=== PATIENT | female | born 1955 | race African-American/Black ===

== ENCOUNTER 2016-12-06 00:35 | Emergency (ER) | payer MEDICAID ==
[~2016-12-06] VITALS: Ht 180.3 cm; Wt 72.6 kg
[2016-12-06 01:17] LABS: Basophils # (auto) 0.1 uL; Basophils % (auto) 1.3 % (0.0-2.0); Eosinophils # (auto) 0.1 uL; Hematocrit 45.2 % (36.0-46.0); Hemoglobin 14.8 g/dL (12.2-16.2); Lymphocytes # (auto) 2.7 uL; Lymphocytes % (auto) 33.6 % (10.0-50.0); Mean Corpuscular Hemoglobin 25.8 pg (28.0-32.0); Mean Corpuscular Hgb Conc. 32.7 g/dL (32.0-36.0); Mean Corpuscular Volume 79.1 fL (80.0-100.0); Mean Platelet Volume 9.3 fL (6.9-10.8); Monocytes # (auto) 0.5 uL; Monocytes % (auto) 6.7 % (0.0-12.0); Neutrophils # (auto) 4.5 uL; Neutrophils % (auto) 57.4 % (37.0-80.0); Nucleated Red Blood Cells % 0.3 %; Platelet Count (auto) 211 10^3/uL (140-450); Red Cell Distribution Width 15.5 % (11.8-14.3); White Blood Cell 7.9 10^3/uL (4.4-10.8)
[2016-12-06 01:33] LABS: INR 1.04 (0.9-1.15); Partial Thromboplastin Time 23.8 sec (22.64-33.71); Prothrombin Time 11.3 sec (9.37-12.3)
[2016-12-06 01:41] LABS: BUN/Creatinine Ratio 10.3; Bilirubin, Total 0.5 mg/dL (0.2-1.0); Calcium 9.3 mg/dL (8.5-10.1); Potassium 3.2 mmol/L (3.5-5.1)
[2016-12-06 01:42] LABS: Albumin 3.7 g/dL (3.4-5.0)
[2016-12-06 04:38] VITALS: BP 136/94
== END 2016-12-06 05:25 | disposition home or self-care (01) ==
LOC: ER 00:35
DX: R55 Syncope and collapse (principal); I10 Essential (primary) hypertension; R11.2 Nausea with vomiting, unspecified
CPT/HCPCS: 36415; 70450; 71010; 80053; 84484; 85025; 85610; 85730; 93005

== ENCOUNTER 2020-08-10 11:41 | Emergency (ER) | payer MEDICAID ==
[~2020-08-10] VITALS: Ht 165.1 cm; Wt 90.7 kg
[2020-08-10] MEDS ORDERED: SODIUM CHLORIDE 0.9% 500 ML IV ONE (12:00)
[2020-08-10 12:14] LABS: Basophils # (auto) 0.1 10 ^3/uL (0-0.2); Basophils % (auto) 1.6 % (0.0-2.0); Eosinophils # (auto) 0.1 10 ^3/uL (0-0.8); Eosinophils % (auto) 1.6 % (0.0-7.0); Hematocrit 41.4 % (36.0-46.0); Hemoglobin 13.6 g/dL (12.2-16.2); Lymphocytes # (auto) 1.7 10 ^3/uL (0.4-5.4); Lymphocytes % (auto) 34.1 % (10.0-50.0); Mean Corpuscular Hemoglobin 25.7 pg (28.0-32.0); Mean Corpuscular Hgb Conc. 32.9 g/dL (32.0-36.0); Monocytes # (auto) 0.4 10 ^3/uL (0-1.3); Monocytes % (auto) 8.5 % (0.0-12.0); Neutrophils # (auto) 2.6 10 ^3/uL (1.6-8.6); Neutrophils % (auto) 54.2 % (37.0-80.0); Nucleated Red Blood Cells % 0.2 %; Platelet Count (auto) 200 10^3/uL (140-450); Red Blood Cells 5.31 10^6/uL (4.0-5.20); Red Cell Distribution Width 15.8 % (11.8-14.3); White Blood Cell 4.8 10^3/uL (4.4-10.8)
[2020-08-10 12:27] LABS: Anion Gap 5 (5-15); Blood Urea Nitrogen 19 mg/dL (7-18); Calcium 8.3 mg/dL (8.5-10.1); Carbon Dioxide 24 mmol/L (21-32); Chloride 109 mmol/L (98-107); Glucose 110 mg/dL (74-106); Magnesium 2.2 mg/dL (1.6-2.6); Sodium 138 mmol/L (136-145)
[2020-08-10 12:34] LABS: Alanine Aminotransferase 21 U/L (13-56); Alkaline Phosphatase 61 U/L (45-117); Aspartate Aminotransferase 42 U/L (15-37); BUN/Creatinine Ratio 14.5; Bilirubin, Total 0.5 mg/dL (0.2-1.0); GFR African American 53 mL/min; GFR Non-African American 43 mL/min; Total Protein 7.7 g/dL (6.4-8.2)
[2020-08-10 14:37] LABS: Urine Bacteria NONE SEEN /hpf (None Seen); Urine Blood Negative /uL (Negative); Urine Hyaline Cast FEW /lpf (0 - 2); Urine Specific Gravity 1.011 (1.001-1.035); Urine WBC 1 /hpf (0 - 5)
[2020-08-10] MEDS ORDERED: cloNIDine HCL 0.1 MG TAB PO ONE (15:00)
[2020-08-10 16:28] VITALS: BP 172/101
== END 2020-08-10 16:54 | disposition home or self-care (01) ==
LOC: EDBD 11:41 → ER 11:41
DX: R55 Syncope and collapse (principal); I16.0 Hypertensive urgency; F12.10 Cannabis abuse, uncomplicated; F17.210 Nicotine dependence, cigarettes, uncomplicated; Z88.8 Allergy status to other drugs, medicaments and biological substances
CPT/HCPCS: 36415; 70450; 80053; 81001; 83735; 84484; 85025; 85049; 93005; 96360; 96361; 99285; J7040

== ENCOUNTER 2021-10-15 10:01 | Inpatient (IN) | payer OTHER, MEDICAID ==
[~2021-10-15] VITALS: Ht 175.3 cm; Wt 90.9 kg
[2021-10-15 11:04] LABS: Basophils # (auto) 0 10 ^3/uL (0-0.2); Eosinophils # (auto) 0 10 ^3/uL (0-0.8); Mean Corpuscular Hgb Conc. 31.7 g/dL (32.0-36.0); Monocytes # (auto) 0.5 10 ^3/uL (0-1.3); Red Cell Distribution Width 15.3 % (11.8-14.3)
[2021-10-15 11:06] LABS: Basophils % (auto) 1.1 % (0.0-2.0); Eosinophils % (auto) 0.2 % (0.0-7.0); Lymphocytes # (auto) 0.8 10 ^3/uL (0.4-5.4); Lymphocytes % (auto) 28.1 % (10.0-50.0); Mean Corpuscular Hemoglobin 25.1 pg (28.0-32.0); Mean Corpuscular Volume 79.3 fL (80.0-100.0); Monocytes % (auto) 17.4 % (0.0-12.0); Neutrophils # (auto) 1.6 10 ^3/uL (1.6-8.6); Neutrophils % (auto) 53.2 % (37.0-80.0); Nucleated Red Blood Cells % 0.1 %; Red Blood Cells 5.17 10^6/uL (4.0-5.20)
[2021-10-15 11:54] LABS: Albumin 3.1 g/dL (3.4-5.0); Calcium 8.6 mg/dL (8.5-10.1)
[2021-10-15 11:58] LABS: BUN/Creatinine Ratio 9.6; Bilirubin, Total 0.3 mg/dL (0.2-1.0); Total Protein 7.4 g/dL (6.4-8.2)
[2021-10-15 12:05] LABS: Potassium 2.6 mmol/L (3.5-5.1)
[2021-10-15] MEDS ORDERED: POTASSIUM CHL 20 Meq TABLET PO ONE (12:30)
[2021-10-15] MEDS: POTASSIUM CHL 20MEQ/100ML 100 ML IV SCH ×2 (12:40→16:04)
[2021-10-15] MEDS ORDERED: MORPHINE SULFATE INJ 2 MG/ml SYRG IV PRN (12:45)
[2021-10-15] MEDS: PIPERACILLIN-TAZOB 3.375GM 100 ML IV SCH ×2 (12:45→18:00)
[2021-10-15] MEDS ORDERED: SODIUM CHLORIDE 0.9% 1,000 ML IV ONE (12:45)
[2021-10-15] MEDS ORDERED: NITROGLYCERIN 0.4 MG SL TAB SL PRN (12:45)
[2021-10-15 18:00] VITALS: BP 146/104
[2021-10-15] MEDS ORDERED: PIPERACILLIN-TAZOB 3.375GM 100 ML IV SCH (18:00)
[2021-10-15 18:40] LABS: Calcium 8.6 mg/dL (8.5-10.1)
[2021-10-15 18:46] LABS: BUN/Creatinine Ratio 10.9
[2021-10-15] MEDS ORDERED: POTASSIUM EFFERVESENT TAB 25 MEQ PO ONE (19:00)
== END 2021-10-15 19:22 | disposition home or self-care (01) | DRG 312 ==
LOC: ER 10:11 → TELE 12:37
PROVIDERS: ADMIT Internal Medicine; ATTEND Internal Medicine
DX: R55 Syncope and collapse (principal); U07.1 COVID-19; E87.6 Hypokalemia; E66.9 Obesity, unspecified; F17.210 Nicotine dependence, cigarettes, uncomplicated; I10 Essential (primary) hypertension; E86.0 Dehydration; Z88.8 Allergy status to other drugs, medicaments and biological substances; Z68.29 Body mass index [BMI] 29.0-29.9, adult
CPT/HCPCS: 36415; 70450; 71045; 80048; 80053; 84484; 85025; 87040; 93005; 93306; 93886; 96360; 96361; G0378; J2543; J3480

== ENCOUNTER 2024-03-01 15:57 | Inpatient (IN) | payer BC, OTHER ==
[~2024-03-01] VITALS: Ht 175.3 cm; Wt 106.0 kg
--- NOTE | 2024-03-01 16:25 | ECG ---
[facility] Test Date: 2024-03-01 Test Time: 16:20:45 Pat Name: ADE RITTER Department: ER Room: [address] [place] [address] Gender: F Excellence Leader: GE : 1955 Requested By: JACQUELYN LERMA Order Number: [id number] Reading MD: Remberto Patel Measurements Intervals [place] Rate: 76 P: 49 ID: [id number] QRS: 6 QRSD: 95 T: 170 QT: 365 QTc: 411 Interpretive Statements Sinus rhythm Ventricular bigeminy Nonspecific T abnormalities, lateral leads Electronically Signed On 03-02-2024 16:08:49 PST by Remberto Patel Please click the below link to view image of tracing.
[2024-03-01 17:04] LABS: Hemoglobin 13.4 g/dL (12.2-16.2)
[2024-03-01 17:05] LABS: Basophils # (auto) 0 10 ^3/uL (0-0.2); Basophils % (auto) 0.7 % (0.0-2.0); Eosinophils # (auto) 0 10 ^3/uL (0-0.8); Eosinophils % (auto) 0.4 % (0.0-7.0); Hematocrit 41.6 % (36.0-46.0); Lymphocytes # (auto) 1.2 10 ^3/uL (0.4-5.4); Lymphocytes % (auto) 24.3 % (10.0-50.0); Mean Corpuscular Hemoglobin 25.6 pg (28.0-32.0); Mean Corpuscular Hgb Conc. 32.3 g/dL (32.0-36.0); Monocytes # (auto) 0.3 10 ^3/uL (0-1.3); Monocytes % (auto) 6.3 % (0.0-12.0); Neutrophils # (auto) 3.3 10 ^3/uL (1.6-8.6); Neutrophils % (auto) 68.3 % (37.0-80.0); Nucleated Red Blood Cells % 0.1 %; Platelet Count (auto) 255 10^3/uL (140-450); Red Blood Cells 5.26 10^6/uL (4.0-5.20); White Blood Cell 4.8 10^3/uL (4.4-10.8)
--- NOTE | 2024-03-01 17:17 | DVH ---
EXAM: CT HEAD WITHOUT CONTRAST HISTORY: confused COMPARISON: HEAD WITHOUT CONTRAST on DOS: 10/15/21, HEAD WITHOUT CONTRAST on DOS: 08/10/20 TECHNIQUE: Axial images were obtained and reformatted in coronal and sagittal planes. All CT scans at this medical facility are performed using dose modulation techniques as appropriate t o a performed exam including the following: Automated exposure control was utilized; adjustment of th e MA and/or KV according to patient size; and use of iterative reconstruction technique. CT Dose: CTDI volume is 64.26 mGy. Dose-length product is 1137.68 mGy*cm FINDINGS: Supratentorial Region: No evidence for large acute territorial ischemia. No intracranial hemorrhage is noted. Confluent white matter hypoattenuating foci are noted bilaterally, which typically reflect chronic microvascular ischemic changes. Chronic appearing lacunar infarcts are seen in the bilateral caudate heads, not present in CT scan of. Posterior Fossa: No acute abnormality. Brainstem: An old lacunar infarct is seen in right paramedian ofelia, stable. Sellar/Suprasellar Region: Unremarkable. Ventricles, Cisterns, Sulci: Age-appropriate. Orbits: Unremarkable. Paranasal Sinuses: Unremarkable. Mastoid Air Cells: Unremarkable. Vasculature: Intracranial arterial calcified plaque formation noted. Bones/Soft Tissues: No acute abnormality. Other: None. IMPRESSION: 1. No acute intracranial process. 2. Chronic microvascular ischemic changes old lacunar infarcts as described above.
[2024-03-01 17:36] LABS: Alanine Aminotransferase 28 U/L (7-40); Albumin 3.8 g/dL (3.2-4.8); Alkaline Phosphatase 74 U/L (46-116); Anion Gap 7 (5-15); Aspartate Aminotransferase 36 U/L (13-40); BUN/Creatinine Ratio 13.6 (10.0-20.0); Bilirubin, Total 0.5 mg/dL (0.2-1.0); Blood Urea Nitrogen 17 mg/dL (9-23); Calcium 10.1 mg/dL (8.7-10.4); Carbon Dioxide 26 mmol/L (20-31); Chloride 104 mmol/L (98-107); Sodium 137 mmol/L (136-145)
[2024-03-01 17:37] LABS: Total Protein 7.5 g/dL (5.7-8.2)
[2024-03-01 17:39] LABS: Glucose 132 mg/dL (74-106); Potassium 3.4 mmol/L (3.5-5.1)
--- NOTE | 2024-03-01 19:36 | ED.PDOC ---
History of Present Illness HPI Comments 68 y/o F presents with relative s/p syncopal episode, today. Patient endorses on eating her lunch when she had a sudden syncopal episode of 1x minute duration, while seated, this evening. She comments on having "tunnel vision" and lightheadedness prior to episode onset and not eating breakfast, earlier. At t irasema of assessment, she denies having any chest pain, shortness of breath, dizziness, lightheadedness, or other associated symptoms or modifiers at this time. 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 Family History Family History: Family hx of heart suzi Family History (Other): mother had a history of syncope Social History Smoker: Cigarettes Alcohol: Occasionally Drugs: Marijuana Lives In: Home Cardiovascular: reports: syncope All Other Systems: Reviewed and Negative (negative unless otherwise stated abo ve or in HPI) Physical Exam General Appearance: No Apparent Distress, Normal HEENT: Normal ENT Inspection, Pharynx Normal, TMs Normal Neck: Full Range of Motion, Non-Tender, Normal, Normal Inspection Respiratory: Chest Non-Tender, Lungs Clear, No Accessory Muscle Use, No Respiratory Distress, Normal Breath Sounds Cardiovascular: No Edema, No JVD, No Murmur, No Gallop, Normal Peripheral P ulses, Regular Rate/Rhythm Breast Exam: Deferred Gastrointestinal: No Organomegaly, Non Tender, No Pulsatile Mass, Normal Bowel Sounds, Soft Genitalia: Deferred Pelvic: Deferred Rectal: Deferred Extremities: No calf tenderness, Normal capillary refill, Normal inspection, Normal range of motion, Non-tender, No pedal edema Musculoskeletal : Apperance: Normal Neurologic: Alert, utility tech II-XII nml as Tested, No Motor Deficits, Normal Affect, Normal Mood, No Sensory Deficits Cerebellar Function: Normal Reflexes: Normal Skin: Dry, Normal Color, Warm Lymphatic: No Adenopathy Was a procedure done? Was a procedure done?: No EKG EKG : Pulse Rate (adult): 76 [place]: Normal Cardiac Rhythm: NSR Block: None Hypertrophy: None ST: Normal Differential Dx Considerations may include: dehydration, electrolyte imbalance, vasovagal response X-Ray, Labs, Meds, VS Vital Signs Date Time Temp Pulse Resp B/P (MAP) Pulse Ox O2 Delivery O2 Flow Rate FiO2 03/01/24 16:20 76 03/01/24 16:18 97.9 83 16 123/71 (88) 97 Lab Test 03/01/24 17:48 03/01/24 16:43 03/01/24 16:09 Range/Units Troponin I High Sensitivity 7 7 </=34 ng/L White Blood Count 4.8 4.4-10.8 10^3/uL Red Blood Count 5.26 H 4.0-5.20 10^6/uL Hemoglobin 13.4 12.2-16.2 g/dL Hematocrit 41.6 36.0-46.0 % Mean Corpuscular Volume 79.0 L 80.0-100.0 fL Mean Corpuscular Hemoglobin 25.6 L 28.0-32.0 pg Mean Corpuscular Hemoglobin Concent 32.3 32.0-36.0 g/dL Red Cell Distribution Width 15.0 H 11.8-14.3 % Platelet Count 255 140-450 10^3/uL Mean Platelet Volume 9.9 6.9-10.8 fL Neutrophils (%) (Auto) 68.3 37.0-80.0 % Lymphocytes (%) (Auto) 24.3 10.0-50.0 % Monocytes (%) (Auto) 6.3 0.0-12.0 % Eosinophils (%) (Auto) 0.4 0.0-7.0 % Basophils (%) (Auto) 0.7 0.0-2.0 % Neutrophils # (Auto) 3.3 1.6-8.6 10 ^3/uL Lymphocytes # (Auto) 1.2 0.4-5.4 10 ^3/uL Monocytes # (Auto) 0.3 0-1.3 10 ^3/uL Eosinophils # (Auto) 0 0-0.8 10 ^3/uL Basophils # (Auto) 0 0-0.2 10 ^3/uL Nucleated Red Blood Cells 0.1 % D-Dimer, Quantitative 0.86 H 0.0-0.49 mg/L FEU Sodium Level 137 136-145 mmol/L Potassium Level 3.4 L 3.5-5.1 mmol/L Chloride Level 104 98-107 mmol/L Carbon Dioxide Level 26 20-31 mmol/L Anion Gap 7 5-15 Blood Urea Nitrogen 17 9-23 mg/dL Creatinine 1.25 H 0.550-1.02 mg/dL Glomerular Filtration Rate Calc 47 >90 mL/min BUN/Creatinine Ratio 13.6 10.0-20.0 Serum Glucose 132 H 74-106 mg/dL Calcium Level 10.1 8.7-10.4 mg/dL Total Bilirubin 0.5 0.2-1.0 mg/dL Aspartate Amino Transferase (AST) 36 13-40 U/L Alanine Aminotransferase (ALT) 28 7-40 U/L Alkaline Phosphatase 74 46-116 U/L B-Type Natriuretic Peptide 107.52 0-100 pg/mL Total Protein 7.5 5.7-8.2 g/dL Albumin 3.8 3.2-4.8 g/dL Blood Oxycodone Screen Pending Blood Methadone Screen Pending Blood Amphetamines Screen Pending Drugs of Abuse Source Pending POC Glucose 75 70-106 mg/dl [place] [id number] Ph: [phone] DIAGNOSTIC IMAGING Diagnostic Imaging Report : [id number] Signed PATIENT: ADE RITTER ACCT: [id number] UNIT: [id number] : 1955 LOC: ER ROOM / BED: / AGE / SEX: 68 / F ADM STATUS: REG ER SERVICE 1625 ORDERING PHYSICIAN: JACQUELYN LERMA MD PROCEDURE(s): HWOCT - HEAD WITHOUT CONTRAST REASON: confused ORDER NUMBER(s): [id number], ACCESSION NUMBER(s): [id number] EXAM: CT HEAD WITHOUT CONTRAST HISTORY: confused COMPARISON: HEAD WITHOUT CONTRAST on DOS: 10/15/21, HEAD WITHOUT CONTRAST on DOS: 08/10/20 TECHNIQUE: Axial images were obtained and reformatted in coronal and sagittal planes. All CT scans at this medical facility are performed using dose modulation techniques as appropriate to a performed exam including the following: Automated exposure control was utilized; adjustment of the MA and/or KV according to patient size; and use of iterative reconstruction technique. CT Dose: CTDI volume is 64.26 mGy. Dose-length product is 1137.68 mGy*cm FINDINGS: Supratentorial Region: No evidence for large acute territorial ischemia. No intracranial hemorrhage is noted. Confluent white matter hypoattenuating foci are noted bilaterally, which typically reflect chronic microvascular ischemic changes. Chronic appearing lacunar infarcts are seen in the bilateral caudate heads, not present in CT scan of. Posterior Fossa: No acute abnormality. Brainstem: An old lacunar infarct is seen in right paramedian ofelia, stable. Sellar/Suprasellar Region: Unremarkable. Ventricles, Cisterns, Sulci: Age-appropriate. Orbits: Unremarkable. Paranasal Sinuses: Unremarkable. Mastoid Air Cells: Unremarkable. Vasculature: Intracranial arterial calcified plaque formation noted. Bones/Soft Tissues: No acute abnormality. Other: None. IMPRESSION: 1. No acute intracranial process. 2. Chronic microvascular ischemic changes old lacunar infarcts as described above. ATED BY: CHINA SANDY MD DICTATED DATE/TIME: 03/01/241714 SIGNED BY: CHINA SANDY MD SIGNED DATE/TIME: 03/01/241714 CC: Time of 1ST Reevaluation: 16:50 Reevaluation 1ST: Unchanged Patient Education/Counseling: Diagnosis, Treatment Family Education/Counseling: No Family Present Critical Care Note Critical Care Time?: No Stability Stability form required: No Heart Score Heart Score: Heart Score Response (Comments) Value History N/A 0 EKG N/A 0 Age N/A 0 Risk Factors N/A 0 Troponin N/A 0 Total 0 I personally scribed for JACQUELYN LERMA MD ([email or web address]) on 03/01/24 at 19:36. Electronically submitted by Travis Lindsay [email or web address]). JACQUELYN LERMA MD Mar 01, 2024 19:36
[2024-03-01] MEDS ORDERED: DOCUSATE SOD 100 MG CAP PO PRN (20:00)
[2024-03-01] MEDS ORDERED: ACETAMINOPHEN 325 MG TAB PO PRN (20:00)
[2024-03-01] MEDS ORDERED: ONDANSETRON HCL 4 MG/2 ML VIAL IV PRN (20:00)
[2024-03-01] MEDS ORDERED: HYDROcodone-ACET 5/325MG TAB PO PRN (20:00)
--- NOTE | 2024-03-01 20:13 | DVHHP2 ---
History of Present Illness Reason for Visit: Syncopal episode History of Present Illness The patient is a 68-year-old female with past medical history of hypertension, liver disease, vertigo, arthritis, and anxiety who presented to [facility] ED for evaluation of syncopal episode. Patient reports she was eating her lunch when she suddenly had syncopal episode lasting for 1 minute, experiencing tunnel vision, lightheadedness, getting worse that prompted this visit. Patient was seen and evaluated in the ED, laboratory data shows WBC 4.8, platelets 255, sodium 137, potassium 3.4, BUN 17, creatinine 1.25, GFR 47, glucose 132, troponin 7, BNP 107.52. Head CT showed no acute intracranial process. Please see medication orders section in the computer. On my assessment, patient denied chest pain, no headache, no dizziness, no diaphoresis, no shortness of breaths, no nausea, no vomiting, no fever, no chills. Patient was admitted for further evaluation and medical management. Past Medical History Anxiety, Arthritis, HTN, Liver, vertigo Past Surgical History BTL Family History Reviewed, noncontributory to the management of this case. Past Social History Patient lives at home, smokes cigarettes, drinks alcohol occasionally, uses marijuana. Review of Systems Constitutional: Yes: Weakness; No: Fever, Chills, Sweats, Malaise, Other Eyes: No: Pain, Vision change, Conjunctivae inflammation, Eyelid inflammation, Other, Redness ENT: No: Ear pain, Ear discharge, Nose pain, Nose discharge, Nose congestion, Mouth pain, Mouth swelling, Throat pain, Throat swelling, Other Respiratory: No: Cough, Dry, Shortness of breath, SOB with excertion, Wheezing, Hemoptysis, Pleuritic Pain, Sputum, Wheezing, Other Cardiovascular: Other (Syncope); No: Chest Pain, Palpitations, Orthopnea, Paroxysmal Noc. Dyspnea, Edema, Lt Headedness Gastrointestinal: No: Nausea, Vomiting, Abdominal Pain, Diarrhea, Constipation, Melena, Hematochezia, Other Genitourinary: No Dysuria, No Frequency, No Incontinence, No Hematuria, No Retention, No Other Musculoskeletal: No: other, neck pain, shoulder pain, arm pain, back pain, hand pain, leg pain, foot pain Skin: No: Rash, Lesions, Jaundice, Bruising, Other Neurological: No: Weakness, Numbness, Incoordination, Change in speech, Confusion, Seizures, Other Allergies: Coded Allergies: Bupropion (Verified Allergy, Unknown, 08/10/20) Medications Current Medications Medications Dose Ordered Sig/Rodney Route Start Time Stop Time Status Last Admin Dose Admin Hydralazine HCl 10 mg Q6HP PRN IV 03/01/24 20:00 Sodium Chloride 1,000 ml @ 60 mls/hr [id number] IV 03/01/24 20:00 Acetaminophen/ Hydrocodone Bitart 1 tab Q4HP PRN PO 03/01/24 20:00 Ondansetron HCl 4 mg Q4HP PRN IV 03/01/24 20:00 Docusate Sodium 100 mg BIDPRN PRN PO 03/01/24 20:00 Acetaminophen 650 mg Q6HP PRN PO 03/01/24 20:00 Exam Vital Signs Vital Signs Date Time Temp Pulse Resp B/P (MAP) Pulse Ox O2 Delivery O2 Flow Rate FiO2 03/01/24 19:36 76 03/01/24 16:18 97.9 16 123/71 (88) 97 General Appearance: Alert, Oriented X3, Cooperative, No acute distress HEENT: Atraumatic, PERRLA, EOMI, Mucous membr. moist/pink Respiratory: Clear to auscultation, Normal air movement Cardiovascular: Regular rate, Normal S1, Normal S2, No murmurs Abdominal: Normal bowel sounds, Soft, No tenderness, No hepatospenomegaly, No masses Extremities: No clubbing, No cyanosis, No edema, Normal pulses, No tenderness/swelling Skin: No rashes, No breakdown, No significant lesion Neuro: Normal speech, Normal tone, Sensation intact, Cranial nerves 3-12 NL, R eflexes 2+, Other (Generalized weakness) Psych/Mental Status: Mental status NL, Mood NL Labs/Xrays Labs Test 03/01/24 19:46 03/01/24 16:43 03/01/24 16:19 03/01/24 16:09 Range/Units White Blood Count 4.8 4.4-10.8 10^3/uL Red Blood Count 5.26 H 4.0-5.20 10^6/uL Hemoglobin 13.4 12.2-16.2 g/dL Hematocrit 41.6 36.0-46.0 % Mean Corpuscular Volume 79.0 L 80.0-100.0 fL Mean Corpuscular Hemoglobin 25.6 L 28.0-32.0 pg Mean Corpuscular Hemoglobin Concent 32.3 32.0-36.0 g/dL Red Cell Distribution Width 15.0 H 11.8-14.3 % Platelet Count 255 140-450 10^3/uL Mean Platelet Volume 9.9 6.9-10.8 fL Neutrophils (%) (Auto) 68.3 37.0-80.0 % Lymphocytes (%) (Auto) 24.3 10.0-50.0 % Monocytes (%) (Auto) 6.3 0.0-12.0 % Eosinophils (%) (Auto) 0.4 0.0-7.0 % Basophils (%) (Auto) 0.7 0.0-2.0 % Neutrophils # (Auto) 3.3 1.6-8.6 10 ^3/uL Lymphocytes # (Auto) 1.2 0.4-5.4 10 ^3/uL Monocytes # (Auto) 0.3 0-1.3 10 ^3/uL Eosinophils # (Auto) 0 0-0.8 10 ^3/uL Basophils # (Auto) 0 0-0.2 10 ^3/uL Nucleated Red Blood Cells 0.1 % D-Dimer, Quantitative 0.86 H 0.0-0.49 mg/L FEU Sodium Level 137 136-145 mmol/L Potassium Level 3.4 L 3.5-5.1 mmol/L Chloride Level 104 98-107 mmol/L Carbon Dioxide Level 26 20-31 mmol/L Anion Gap 7 5-15 Blood Urea Nitrogen 17 9-23 mg/dL Creatinine 1.25 H 0.550-1.02 mg/dL Glomerular Filtration Rate Calc 47 >90 mL/min BUN/Creatinine Ratio 13.6 10.0-20.0 Serum Glucose 132 H 74-106 mg/dL Calcium Level 10.1 8.7-10.4 mg/dL Total Bilirubin 0.5 0.2-1.0 mg/dL Aspartate Amino Transferase (AST) 36 13-40 U/L Alanine Aminotransferase (ALT) 28 7-40 U/L Alkaline Phosphatase 74 46-116 U/L B-Type Natriuretic Peptide 107.52 0-100 pg/mL Total Protein 7.5 5.7-8.2 g/dL Albumin 3.8 3.2-4.8 g/dL POC Glucose 75 70-106 mg/dl PATIENT: ADE RITTER ACCT: [id number] UNIT: [id number] : 1955 LOC: ER ROOM / BED: / AGE / SEX: 68 / F ADM STATUS: REG ER SERVICE 1625 ORDERING PHYSICIAN: JACQUELYN LERMA MD PROCEDURE(s): HWOCT - HEAD WITHOUT CONTRAST REASON: confused ORDER NUMBER(s): [id number], ACCESSION NUMBER(s): [id number] EXAM: CT HEAD WITHOUT CONTRAST HISTORY: confused COMPARISON: HEAD WITHOUT CONTRAST on DOS: 10/15/21, HEAD WITHOUT CONTRAST on DOS: 08/10/20 TECHNIQUE: Axial images were obtained and reformatted in coronal and sagittal planes. All CT scans at this medical facility are performed using dose modulation techniques as appropriate to a performed exam including the following: Automated exposure control was utilized; adjustment of the MA and/or KV according to patient size; and use of iterative reconstruction technique. CT Dose: CTDI volume is 64.26 mGy. Dose-length product is 1137.68 mGy*cm FINDINGS: Supratentorial Region: No evidence for large acute territorial ischemia. No intracranial hemorrhage is noted. Confluent white matter hypoattenuating foci are noted bilaterally, which typically reflect chronic microvascular ischemic changes. Chronic appearing lacunar infarcts are seen in the bilateral caudate heads, not present in CT scan of. Posterior Fossa: No acute abnormality. Brainstem: An old lacunar infarct is seen in right paramedian ofelia, stable. Sellar/Suprasellar Region: Unremarkable. Ventricles, Cisterns, Sulci: Age-appropriate. Orbits: Unremarkable. Paranasal Sinuses: Unremarkable. Mastoid Air Cells: Unremarkable. Vasculature: Intracranial arterial calcified plaque formation noted. Bones/Soft Tissues: No acute abnormality. Other: None. IMPRESSION: 1. No acute intracranial process. 2. Chronic microvascular ischemic changes old lacunar infarcts as described above. Assessment/Plan Assessment/Plan Syncopal episode Hypokalemia Hyperglycemia Generalized weakness Plan 1. Admit to telemetry unit 2. Breathing treatment 3. Pain control management 4. Management of fluids and electrolytes 5. Consultation for Cardiology 6. Diagnostic tests head CT 7. DVT prophylaxis-on aspirin 8. Repeat labs CBC, CMP in a.m. 9. Continue with current medical management 10. Treatment plan discussed with patient and RN. Patient verbalized understanding. Plan discussed with: Patient, Other (RN) My Orders Orders - GISELE LOUIS DNP Procedure Category Date Status Time Hydralazine Injection PHA 03/01/24 In Process (Apresoline Inject 20:00 Allergies DORIS 03/01/24 In Process 19:55 Code Status CODE 03/01/24 Transmitted 19:55 Sodium Chloride 0.9% PHA 03/01/24 In Process 20:00 Oxygen Per Hour RT 03/01/24 Transmitted 19:55 Hydrocodone-Acet PHA 03/01/24 In Process 5/325mg Tab ([place] 20:00 Ondansetron Hcl PHA 03/01/24 In Process (Zofran) 20:00 Docusate Sodium PHA 03/01/24 In Process Capsule (Colace 20:00 Fall Risk Precautions DORIS 03/01/[address] 19:55 Complete Blood Count LAB 03/02/24 Verified 04:00 Comprehensive LAB 03/02/24 Verified Metabolic Panel 04:00 Cardiac DIET 03/02/24 Transmitted Diet-2gna,Lofat,Lochol Breakfast Condition: Serious DORIS 03/01/24 In Process 19:55 Acetaminophen Tablet PHA 03/01/24 In Process (Tylenol Tablet) 20:00 Sequential DORIS 03/01/24 In Process Compression Device * Cardiology Consult CONS 03/01/24 Verified 20:11 Admit ADMIT 03/01/24 Verified 20:11 Nitroglycerin PHA 03/01/24 Verified Sublingual (Ntrostat 20:15 Morphine Sulfate PHA 03/01/24 Verified Injection 20:15 Stat Ekg For Chest DORIS 03/01/24 Verified Pain 20:11 Notify Md Of Changes DORIS 03/01/24 Verified From Base 20:11 Assistant Loan Processor For DORIS 03/01/24 Verified 24 Hours 20:11 Emergency Dysrhythmia DORIS 03/01/24 Verified Protocol 20:11 Rhythm Strips Once DORIS 03/01/24 Verified Every Shift 20:11 Oxygen By Nasal RT 03/01/24 Verified Cannula 20:11 Problem List: (1) Syncopal episodes (2) Hypokalemia (3) Hyperglycemia (4) Generalized weakness Date of Service: Mar 01, 2024 Billing Provider: GISELE LOUIS DNP Common Visit Codes: [id number] INP/OBS CARE (HIGH) GISELE LOUIS DNP Mar 01, 2024 20:13
[2024-03-01] MEDS ORDERED: MORPHINE SULFATE INJ 2 MG/ml SYRG IV PRN (20:15)
[2024-03-01] MEDS ORDERED: NITROGLYCERIN 0.4 MG SL TAB SL PRN (20:15)
[2024-03-01 20:25] LABS: Urine Bacteria MANY /hpf (None Seen); Urine Blood Negative /uL (Negative); Urine Clarity Turbid (Clear); Urine Color Yellow (Yellow); Urine Hyaline Cast FEW /lpf (0 - 2); Urine Mucus FEW (None Seen); Urine Protein, UAD Negative (Negative); Urine Specific Gravity 1.017 (1.001-1.035); Urine Squamous Epithelial Cell FEW /hpf (<5); Urine Urobilinogen Normal (Negative); Urine WBC 25 /hpf (0 - 5); Urine pH 5.5 (5.0-9.0)
[2024-03-01 20:33] LABS: Amphetamine Screen, Urine Neg (NEGATIVE); Cannabinoid Screen, Urine Pos (NEGATIVE)
[2024-03-01 20:37] LABS: Barbiturate Scree,Urine Neg (NEGATIVE); Benzodiazephine Screen, Urine Neg (NEGATIVE); Cocaine Screen, Urine Neg (NEGATIVE); Opiate Scree,Urine Neg (NEGATIVE); Phencyclidine Screen, Urine Neg (NEGATIVE)
[2024-03-01] MEDS: POTASSIUM CHL 20 Meq TABLET PO ONE (20:54)
[2024-03-01 21:05] VITALS: PULSE 64; RESP 18; O2SAT 100
[2024-03-01 22:30] VITALS: PULSE 72; RESP 17; O2SAT 96
[2024-03-01] MEDS: SODIUM CHLORIDE 0.9% 1,000 ML IV SCH (22:50)
[2024-03-01] MEDS: hydrALAZINE HCL 20 MG/ML VL IV PRN (22:50)
[2024-03-02 06:37] LABS: Basophils # (auto) 0 10 ^3/uL (0-0.2); Basophils % (auto) 0.5 % (0.0-2.0); Eosinophils # (auto) 0 10 ^3/uL (0-0.8); Eosinophils % (auto) 1.1 % (0.0-7.0); Monocytes # (auto) 0.5 10 ^3/uL (0-1.3); Neutrophils # (auto) 2.2 10 ^3/uL (1.6-8.6); Nucleated Red Blood Cells % 0.2 %; White Blood Cell 4.4 10^3/uL (4.4-10.8)
[2024-03-02 06:40] LABS: Hematocrit 39.5 % (36.0-46.0); Hemoglobin 12.6 g/dL (12.2-16.2); Lymphocytes # (auto) 1.6 10 ^3/uL (0.4-5.4); Mean Corpuscular Hgb Conc. 31.9 g/dL (32.0-36.0); Mean Corpuscular Volume 78.3 fL (80.0-100.0); Neutrophils % (auto) 50.4 % (37.0-80.0); Platelet Count (auto) 229 10^3/uL (140-450); Red Blood Cells 5.05 10^6/uL (4.0-5.20); Red Cell Distribution Width 14.9 % (11.8-14.3)
[2024-03-02 06:41] LABS: Alanine Aminotransferase 23 U/L (7-40); Albumin 3.5 g/dL (3.2-4.8); Alkaline Phosphatase 75 U/L (46-116); Anion Gap 7 (5-15); Aspartate Aminotransferase 30 U/L (13-40); BUN/Creatinine Ratio 14.4 (10.0-20.0); Blood Urea Nitrogen 15 mg/dL (9-23); Calcium 9.5 mg/dL (8.7-10.4); Carbon Dioxide 25 mmol/L (20-31); Glucose 104 mg/dL (74-106); Potassium 3.5 mmol/L (3.5-5.1); Sodium 142 mmol/L (136-145)
[2024-03-02 06:51] LABS: Bilirubin, Total 0.2 mg/dL (0.2-1.0); Chloride 110 mmol/L (98-107)
[2024-03-02] MEDS: ASPirin 81 mg TAB PO SCH (09:58)
--- NOTE | 2024-03-02 10:02 | DVHINCON2 ---
Date Seen: Mar 02, 2024 Referring Physician NIRAV Delgado Reason for Consultation Syncope History of Present Illness This is a pleasant 68-year-old female who presented to the emergency room with a chief complaint of syncopal event. The patient reports she was eating lunch when she failed a sudden onset of generalized weakness, dizziness, and felt the room spinning around resembling previous vertigo episodes in the past. The event was witnessed by her son for described her as having a glazed look in her eyes. Denies chest pain, palpitations, diaphoresis, or shortness of breath. She underwent a 12 lead electrocardiogram revealing a sinus rhythm with nonspecific ST depression to lateral wall and associated intermittent ventricular bigeminy. Serial troponin levels are negative. Significant medical history includes hypertension, history of cerebrovascular accident on 01/2022, vertigo, cannabinoid use, and tobacco use. Past Medical History Past medical history reviewed. No other significant than mentioned above. Past Surgical History BTL Family History Family history reviewed. Reports mother from massive myocardial infarction at 73 years old. Social History Denies any use of alcohol. Admits to cannabinoid use a weekly basis. Smokes a pack of cigarettes every two days. Allergies: Coded Allergies: Bupropion (Verified Allergy, Unknown, 08/10/20) Home Meds Home medications reviewed. Current Medications Current Medications Medications (Trade) Dose Ordered Sig/Rodney Route PRN Reason Start Time Stop Time Status Last Admin Hydralazine HCl (Apresoline Injection) 10 mg Q6HP PRN IV SBP>150 03/01/24 20:00 03/02/24 06:34 Sodium Chloride 1,000 ml @ 60 mls/hr [id number] IV 03/01/24 20:00 03/01/24 22:50 Acetaminophen/ Hydrocodone Bitart ([place] 5/325MG Tab) 1 tab Q4HP PRN PO MODERATE PAIN (4-6 PAIN SCALE) 03/01/24 20:00 Ondansetron HCl (Zofran) 4 mg Q4HP PRN IV NAUSEA / VOMITING 03/01/24 20:00 Docusate Sodium (Colace Capsule) 100 mg BIDPRN PRN PO FOR CONSTIPATION 03/01/24 20:00 Acetaminophen (Tylenol Tablet) 650 mg Q6HP PRN PO PAIN SCALE 1-3 OR TEMP>100.4 03/01/24 20:00 Nitroglycerin (Ntrostat Sublingual) 0.4 mg Q5MINP PRN SL FOR CHEST PAIN 03/01/24 20:15 Morphine Sulfate 2 mg Q30M PRN IV FOR CHEST PAIN 03/01/24 20:15 Aspirin 81 mg DAILY PO 03/02/24 10:00 Ceftriaxone Sodium 50 ml @ 100 mls/hr DAILY@09 IV 03/03/24 09:00 UNV Review of Systems Constitutional: No symptom reported Ears, Nose, & Throat: No symptom reported Eyes: No symptom reported Neurological: Syncope Pulmonary/Respiratory: No symptom reported Cardiovascular: No symptom reported Gastrointestinal: No symptom reported Genitourinary: No symptom reported Musculoskeletal: No symptom reported Skin: No symptom reported Psychiatric: No symptom reported Endocrine: No symptom reported Hemotologic/Lymphatic: No symptom reported Vital Signs Vital Signs Date Time Temp Pulse Resp B/P (MAP) Pulse Ox O2 Delivery O2 Flow Rate FiO2 03/02/24 08:15 Room Air* 0 21 03/02/24 08:01 89 03/02/24 07:08 121/60 (80) 03/02/24 06:30 98.0 14 98 98.0 Physical Exam General Appearance: Cooperative. Well developed. Obese. In no acute distress Head Exam: Normal inspection Neck Exam: Normal inspection. Non-tender. Normal alignment Pulmonary/Respiratory: Chest non-tender. Clear bilateral breath sounds Cardiovascular/Chest: Regular rate and rhythm. S1, S2. No murmurs. No JVD. Peripheral Pulses: 2+ Radial (R). 2+ Radial (L). 2+ Pedal (R). 2+ Pedal (L) Abdominal Exam: Normal bowel sounds. Soft. Nontender. No hepatospenomegaly. No masses Ankle Exam: Negative ankle edema Lower extremities: Negative lower extremity edema Neuro/Mental Status: A&O x4. Coherent Thoughts/Psych: Normal thought pattern. Appropriate mood and affect. Good judgement and insight Appearance: In no acute distress Skin Exam: Normal inspection. Normal color. Warm. Dry Labs/Diagnostic Data Labs Test 03/02/24 05:54 03/01/24 19:46 03/01/24 16:43 03/01/24 16:19 Range/Units White Blood Count 4.4 4.4-10.8 10^3/uL Red Blood Count 5.05 4.0-5.20 10^6/uL Hemoglobin 12.6 12.2-16.2 g/dL Hematocrit 39.5 36.0-46.0 % Mean Corpuscular Volume 78.3 L 80.0-100.0 fL Mean Corpuscular Hemoglobin 25.0 L 28.0-32.0 pg Mean Corpuscular Hemoglobin Concent 31.9 L 32.0-36.0 g/dL Red Cell Distribution Width 14.9 H 11.8-14.3 % Platelet Count 229 140-450 10^3/uL Mean Platelet Volume 9.9 6.9-10.8 fL Neutrophils (%) (Auto) 50.4 37.0-80.0 % Lymphocytes (%) (Auto) 37.0 10.0-50.0 % Monocytes (%) (Auto) 11.0 0.0-12.0 % Eosinophils (%) (Auto) 1.1 0.0-7.0 % Basophils (%) (Auto) 0.5 0.0-2.0 % Neutrophils # (Auto) 2.2 1.6-8.6 10 ^3/uL Lymphocytes # (Auto) 1.6 0.4-5.4 10 ^3/uL Monocytes # (Auto) 0.5 0-1.3 10 ^3/uL Eosinophils # (Auto) 0 0-0.8 10 ^3/uL Basophils # (Auto) 0 0-0.2 10 ^3/uL Nucleated Red Blood Cells 0.2 % Sodium Level 142 # 136-145 mmol/L Potassium Level 3.5 3.5-5.1 mmol/L Chloride Level 110 H 98-107 mmol/L Carbon Dioxide Level 25 20-31 mmol/L Anion Gap 7 5-15 Blood Urea Nitrogen 15 9-23 mg/dL Creatinine 1.04 H 0.550-1.02 mg/dL Glomerular Filtration Rate Calc 59 >90 mL/min BUN/Creatinine Ratio 14.4 10.0-20.0 Serum Glucose 104 74-106 mg/dL Calcium Level 9.5 8.7-10.4 mg/dL Total Bilirubin 0.2 0.2-1.0 mg/dL Aspartate Amino Transferase (AST) 30 13-40 U/L Alanine Aminotransferase (ALT) 23 7-40 U/L Alkaline Phosphatase 75 46-116 U/L Total Protein 7.0 5.7-8.2 g/dL Albumin 3.5 3.2-4.8 g/dL Troponin I High Sensitivity 6 </=34 ng/L D-Dimer, Quantitative 0.86 H 0.0-0.49 mg/L FEU B-Type Natriuretic Peptide 107.52 0-100 pg/mL Urine Color Yellow Yellow Urine Clarity Turbid H Clear Urine pH 5.5 5.0-9.0 Urine Specific Decker 1.017 1.001-1.035 Urine Protein Negative Negative Urine Ketones Negative Negative Urine Blood Negative Negative /uL Urine Nitrite 2+ H Negative Urine Bilirubin Negative Negative Urine Urobilinogen Normal Negative mg/dL Urine Leukocyte Esterase 1+ Negative /uL Urine RBC 1 0 - 4 /hpf Urine WBC 25 0 - 5 /hpf Urine Squamous Epithelial Cells Few <5 /hpf Urine Bacteria Many H None Seen /hpf Urine Hyaline Casts Few 0 - 2 /lpf Urine Mucus Few None Seen Urine Glucose Normal Normal mg/dL Urine Opiates Screen Neg NEGATIVE Urine Fentanyl Screen Neg NEGATIVE Urine Barbiturates Screen Neg NEGATIVE Urine Phencyclidine Screen Neg NEGATIVE Urine Amphetamines Screen Neg NEGATIVE Urine Benzodiazepines Screen Neg NEGATIVE Urine Cocaine Screen Neg NEGATIVE Urine Cannabinoids Screen Pos NEGATIVE Test 03/01/24 16:09 Range/Units POC Glucose 75 70-106 mg/dl Assessment Syncope and collapse Rule out structural heart disease Rule out carotid artery stenosis Rule out tachy/bradyarrhythmias Hypertension HX of CVA HX of vertigo Cannabinoid use Tobacco dependence Obesity Plan/Recommendation (Dr. Quinteros) The patient with complaints of syncope states it resembles to those from previous vertigo events. We will continue further cardiac evaluation with a transthoracic echocardiogram and a carotid duplex to rule out stenosis. Consider an outpatient event monitor if deemed necessary. Monitor ECG changes closely and notify. Continue blood pressure control. Consider neurological evaluation. In the setting of unremarkable imaging results, there is no further cardiac workup indicated at this time. Thank you for allowing us to participate in this patient's care. Please call if you have any questions or concerns. This medical document was created using an electronic medical record system with voice recognition software and computerized dictation system. Although this document has been carefully reviewed, there might still be some phonetic and typographical errors. Occasional wrong-word or ``sound-alike substitutions may have occurred due to the inherent limitations of voice recognition software. These areas are purely typographical due to imperfections of the software programs and do not reflect any compromise in the patient's medical care. Please read the chart carefully and recognize, using context, where these substitutions have occurred. Plan discussed with: Patient, Other NYHA Physical activity limitations: NA Date of Service: Mar 02, 2024 Billing Provider: JOCELIN CALDWELL Cardiology Common Codes: [id number] INP/OBS CARE (High) JOCELIN CALDWELL Mar 02, 2024 10:02
[2024-03-02] MEDS: cefTRIAXone 1GM/50ML D5W 50 ML IV ONE (10:18)
--- NOTE | 2024-03-02 10:44 | DVHPNRES ---
Progress Note Date Seen: Mar 02, 2024 Resident Creating Document: ABDULKADIR WONG RESIDENT Medical Necessity Reason Pt with a Central, PICC or Fol: No Subjective Review of Systems The patient is a 68-year-old female with past medical history of hypertension, liver disease, vertigo, arthritis, and anxiety who presented to [facility] ED for evaluation of syncopal episode. Patient reports she was eating her lunch when she suddenly had syncopal episode lasting for 1 minute, experiencing tunnel vision, lightheadedness, getting worse that prompted this visit. Patient was seen and examined on the bedside. She is alert oriented x3. No active complaints Constitutional: No: Fever, Chills, Sweats, Weakness, Malaise, Other Eyes: No: Pain, Vision change, Conjunctivae inflammation, Eyelid inflammation, Other, Redness ENT: No: Ear pain, Ear discharge, Nose pain, Nose discharge, Nose congestion, Mouth pain, Mouth swelling, Throat pain, Throat swelling, Other Respiratory: No shortness of breath, Cough, Dry,Wheezing, Hemoptysis, Pleuritic Pain, Sputum, Wheezing, Other Cardiovascular: No: Chest Pain, Palpitations, Orthopnea, Paroxysmal Noc. Dyspnea, Edema, Lt Headedness, Other Gastrointestinal: No: Nausea, Vomiting, Abdominal Pain, Diarrhea, Constipation, Melena, Hematochezia, Other Musculoskeletal: No: other, neck pain, shoulder pain, arm pain, back pain, hand pain, leg pain, foot pain Neurological:; No: Weakness, Numbness, Incoordination, Change in speech, Confusion, Seizures Objective vital signs Vital Sign Date Time Temp Pulse Resp B/P (MAP) Pulse Ox O2 Delivery O2 Flow Rate FiO2 03/02/24 10:38 115 18 142/79 (100) 98 03/02/24 08:15 Room Air* 0 21 03/02/24 06:30 98.0 98.0 Total Intake and Output 03/01/24 03/01/24 03/02/24 15:00 23:00 07:00 Intake Total 10 ml 120 ml Balance 10 ml 120 ml medications Current Medications Medications Dose Ordered Sig/Rodney Route Start Time Stop Time Status Last Admin Dose Admin Hydralazine HCl 10 mg Q6HP PRN IV 03/01/24 20:00 03/02/24 06:34 10 MG Sodium Chloride 1,000 ml @ 60 mls/hr [id number] IV 03/01/24 20:00 03/01/24 22:50 60 MLS/HR Acetaminophen/ Hydrocodone Bitart 1 tab Q4HP PRN PO 03/01/24 20:00 Ondansetron HCl 4 mg Q4HP PRN IV 03/01/24 20:00 Docusate Sodium 100 mg BIDPRN PRN PO 03/01/24 20:00 Acetaminophen 650 mg Q6HP PRN PO 03/01/24 20:00 Nitroglycerin 0.4 mg Q5MINP PRN SL 03/01/24 20:15 Morphine Sulfate 2 mg Q30M PRN IV 03/01/24 20:15 Aspirin 81 mg DAILY PO 03/02/24 10:00 03/02/24 09:58 81 MG Ceftriaxone Sodium 50 ml @ 100 mls/hr DAILY@09 IV 03/03/24 09:00 Atorvastatin Calcium 40 mg HS PO 03/02/24 22:00 UNV Losartan Potassium 50 mg DAILY PO 03/03/24 10:00 UNV Amlodipine Besylate 10 mg DAILY PO 03/03/24 10:00 UNV Clonidine HCl 0.1 mg TID PO 03/02/24 14:00 UNV Examination Physical examination: General Appearance: Alert, Oriented X3, Cooperative, No acute distress HEENT: Atraumatic, PERRLA, EOMI, Mucous membrane moist/pink Respiratory: Clear to auscultation, Normal air movement Cardiovascular: Regular rate, Normal S1, Normal S2, No murmurs, no chest wall tenderness Abdominal: Normal bowel sounds, Soft, No tenderness, No hepatospenomegaly, No masses Extremities: No clubbing, No cyanosis, No edema, Normal pulses, No tenderness/swelling Skin: No rashes, No breakdown, No significant lesion Neuro: Normal gait, Normal speech, Strength at 5/5 X4 ext, Normal tone, Sensation intact, grossly intact cranial nerves Psych/Mental Status: Mental status NL, Mood NL laboratory and microbiology Laboratory Tests 03/02/24 05:54 Test 03/02/24 05:54 Range/Units Serum Glucose 104 74-106 mg/dL Labs and/or images reviewed: Labs reviewed by me, Image(s) reviewed by me Problem List/Assessment/Plan Problem List/Assessment/Plan Assessment and plan: # Syncope and collapse likely due to vertigo/dehydration, rule out structural heart disease - EKG revealed Rhythm and troponins were unremarkable - Patient is on telemetry to rule out arrhythmias - Ordered orthoststic vitals, echo, carotid duplex, B12 and TSH - UDS positive for cannabinoids - Given IV normal saline at 60 ml/hr for 2L - Chest xray demonstrated mild pulmonary vascular congestion - BNP is 107 - Consulted cardiology. # Ruled out Pulmonary embolism - D-dimer was high - CT angio revealed no pulmonary emboli, aortic aneurysm or dissection - Doppler lower extremity demonstrated no right or left femoropopliteal venous thrombosis # Hypertensive emergency - Amlodipine 10 mg p.o. daily, losartan potassium 50 mg daily and clonidine 0.1 mg PO TID - IV hydralazine 10 mg q.6 p.r.n. # Acute cystitis - U/A consistent with UTI - Ordered urine bacterial culture - IV ceftriaxone 1 g daily # History of CVA - Aspirin 81 mg daily and atorvastatin 40 mg at HS Diet: Cardiac diet DVT prophylaxis: Lovenox 40 mg SC daily PUD prophylaxis: Pepcid 20 mg po daily Disposition: Telemetry Discussed with the patient for more than 20 minutes full code Plan discussed with Plan discussed with: Patient, Other My Orders My Orders Orders - ABDULKADIR WONG RESIDENT Procedure Category Date Status Time Urine Bacterial DAYA 03/02/24 Uncollected Culture 09:21 Ceftriaxone 1gm/50ml PHA 03/03/24 In Process D5w (Rocephin) 09:00 Carotid Duplx W Color US 03/02/24 Logged DOP 09:21 Echo 2d Mode Cardiac US 03/02/24 Logged DOP 09:21 Vitamin B12 LAB 03/02/24 In Process 09:21 Chest Portable XY 03/02/24 Logged 09:21 Atorvastatin (Lipitor) PHA 03/02/24 Logged 22:00 Losartan Tablet PHA 03/03/24 Logged (Cozaar Tablet) 10:00 Amlodipine Tablet PHA 03/03/24 Logged (Norvasc Tablet) 10:00 Amlodipine Tablet PHA 03/02/24 Logged (Norvasc Tablet) 10:15 Losartan Tablet PHA 03/02/24 Logged (Cozaar Tablet) 10:15 Clonidine Hcl Tablet PHA 03/02/24 Logged (Catapres Tablet) 14:00 Date of Service: Mar 02, 2024 Billing Provider: TYRON MEDLEY MD Common Visit Codes: [id number] INP/OBS CARE(HIGH) ABDULKADIR WONG RESIDENT Mar 02, 2024 10:44 TYRON MEDLEY MD Mar 02, 2024 20:12
--- NOTE | 2024-03-02 10:57 | DVH ---
CHEST RADIOGRAPH Indication: dizziness Technique: Single frontal view of the chest was obtained COMPARISON: CHEST PORTABLE on DOS: 10/15/21 FINDINGS: Lines and Tubes: None Lungs: Minimal interstitial prominence. No focal airspace consolidation. Pleura: No effusion. No pneumothorax. Cardiomediastinal contours: Normal heart size. Atherosclerosis of the aortic arch. Bones: Unremarkable. External density is noted over the right lower neck. IMPRESSION: Minimal interstitial prominence could represent mild pulmonary vascular congestion. No focal pneumon ia.
[2024-03-02] MEDS: amLODIPine BESYLATE 5 MG TAB PO ONE (11:28)
[2024-03-02] MEDS: LOSARTAN POTASSIUM 50 MG TAB PO ONE (11:29)
--- NOTE | 2024-03-02 12:11 | DVH ---
Carotid Duplex Clinical History: Syncope Comparison: CAROTID DUPLX W COLOR DOP on DOS: 10/15/21 Technique: Duplex Doppler evaluation of the extracranial carotid and vertebral arteries including color Doppler and spectral/pulsed waveform analysis was performed. Findings: RIGHT SIDE: The peak systolic velocities are 84 cm/s in the CCA, 77 cm/s in the ICA. The ICA/CCA ratio is 0.9. T here visually appears to be mild plaque at the carotid bulb. The external carotid artery is patent with peak systolic velocity of 111 cm/s proximally. There is appropriate antegrade flow in the right vertebral artery. LEFT SIDE: The peak systolic velocities are 89 cm/s in the CCA, 68 cm/s in the ICA. The ICA/CCA ratio is 0.8. T here visually appears to be mild plaque at the carotid bulb. The external carotid artery is patent with peak systolic velocity of 77 cm/s proximally. There is appropriate antegrade flow in the left vertebral artery. IMPRESSION: No evidence of hemodynamically significant stenosis in the bilateral carotid systems. Reference: Radiology 2003; 229:340-346 Normal ICA PSV is <125 cm/sec and no plaque or intimal thickening is visible sonographically additional criteria include ICA/CCA PSV ratio <2.0 and ICA EDV <40 cm/sec <50% ICA stenosis ICA PSV is <125 cm/sec and plaque or intimal thickening is visible sonographically additional criteria include ICA/CCA PSV ratio <2.0 and ICA EDV <40 cm/sec 50-69% ICA stenosis ICA PSV is 125-230 cm/sec and plaque is visible sonographically additional criteria include ICA/CCA PSV ratio of 2.0-4.0 and ICA EDV of 40-100 cm/sec 70% ICA stenosis but less than near occlusion ICA PSV is >230 cm/sec and visible plaque and luminal narrowing are seen at wright-scale and color Dopp ler ultrasound (the higher the Doppler parameters lie above the threshold of 230 cm/sec, the greater the likelihood of severe disease) additional criteria include ICA/CCA PSV ratio >4 and ICA EDV >100 cm/sec
[2024-03-02] MEDS: IOHEXOL 350 MG/ML 100ML IJ ONE (12:30)
--- NOTE | 2024-03-02 13:02 | DVHSR ---
APPROVED REPORT EXAM: Two-dimensional and M-mode echocardiogram with Doppler and color Doppler. Blood Pressure: 121/60 mmHg INDICATION Syncope RISK FACTORS Height: 5' 9", Weight: 200 DIMENSIONS LVDd5.2 (3.8-5.7cm)LA (2D)3.7 (1.9-4.0cm)Aortic Root3.1 (2.0-3.7cm) LVDs3.5 (2.5-4.0cm)LA (MM) (1.9-4.0cm)Aortic Cusp Exc2.0 (1.5-2.0cm) EF (%) 60.0 (55-70%)Rt. Atrium3.5 (1.9-4.0cm)Asc. Aorta cm IVSd1.1 (0.7-1.1cm)RV (D) (1.8-2.4cm) PWd1.1 (0.7-1.1cm) Mitral Valve MitralMitral Stenosis E wave0.80m/sMV Mean GR.mmHg A wave0.90m/sMV Peak GR.mmHg E/A ratio0.92D MVAcm2 Aortic Valve Aortic ValveAortic Stenosis V11.10m/Jonathan Mean GR.5mmHg V21.50m/Jonathan Peak GR.10mmHg LVOT Diameter2.2 (1.8-2.4cm)Doppler AVA2.79cm2 Pulmonic Valve V20.70m/s Other Information Quality : Technically LimitedRhythm : Technically limited study due to body habitus. Conclusion lvef 55% by visual estimate mild LVH normal rv function left atrium enlarged moderate no severe valve abnormalities noted
--- NOTE | 2024-03-02 13:33 | DVH ---
EXAM: US BILAT LOWER DVT Clinical History: To rule out DVT Comparison: None Technique: Duplex Doppler evaluation of the deep venous systems of both lower extremities from the common femora l veins to the popliteal veins including color Doppler and spectral/pulsed waveform analysis was perf ormed. Findings: No visible intraluminal venous thrombus. No evidence of incompressibility or abnormal color or spectr al Doppler flow visualized in the deep bilateral lower extremity veins. Proximal greater saphenous ve ins are grossly unremarkable. Impression: 1. No sonographic evidence of deep venous thrombosis throughout the bilateral lower extremities from the popliteal veins to the common femoral veins.
--- NOTE | 2024-03-02 14:03 | DVH ---
PROCEDURE: CT CT ANGIO CHEST CONTRAST 03/02/2024 12:29 PM INDICATION: to exclude PE COMPARISON: None TECHNIQUE: Coverage: Thorax IV contrast: Administered Phases: Arterial Multiplanar 3-D Maximum Intensity Projection images (MIP) reconstructions were created by the technbrendon castorena in the coronal and sagittal planes as part of the CT angiography protocol. Adverse events: None Medication laboratory values were reviewed to verify the patient meets criteria for contrast administ ration. All CT scans at this medical facility are performed using dose modulation techniques as appropriate t o a performed exam including the following: Automated exposure control was utilized; adjustment of th e MA and/or KV according to patient size; and use of iterative reconstruction technique. Radiation dose: CTDIvol 27 mGy, DLP 944 mGy*cm. FINDINGS: Cardiovascular: No evidence of acute or chronic pulmonary emboli identified. Aorta is normal in calib er with moderate atherosclerotic calcification. The heart is normal in size. Coronary artery calcific ation noted. Lungs: No focal consolidation. No pleural effusion. No pneumothorax. The airways are patent. Thyroid: Asymmetric enlargement of the right lobe without a discrete lesion. Consider further evaluat ion with thyroid ultrasound. Esophagus: Unremarkable. Lymphatics: No hilar or mediastinal lymphadenopathy. Bones/soft tissues: No acute abnormality. Upper abdomen: No acute abnormality. Hepatic cirrhosis. Spleen is normal in size. No ascites noted. A 2.3 cm simple appearing cyst is seen in the upper pole of the right kidney Other: None. IMPRESSION: 1. No pulmonary emboli, aortic aneurysm or dissection. 2. No evidence of acute cardiopulmonary disease. 3. Hepatic cirrhosis with no evidence of portal hypertension.
[2024-03-02] MEDS: cloNIDine HCL 0.1 MG TAB PO SCH (14:31)
[2024-03-02 17:51] VITALS: BP 131/73; PULSE 74; RESP 18; TEMP 98; O2SAT 98
[2024-03-02 18:00] VITALS: BP 131/73; PULSE 74; RESP 18; TEMP 98; O2SAT 98
[2024-03-02 20:00] VITALS: PULSE 72; RESP 16; O2SAT 100
[2024-03-02 21:00] VITALS: BP_SYST 110; BP_SYST 128; BP_DIAS 47; BP_DIAS 84; PULSE 60; PULSE 72; RESP 16; RESP 17; TEMP 97.9; TEMP 98.1; O2SAT 100; O2SAT 95
[2024-03-02] MEDS: ATORVASTATIN 20 MG TAB PO SCH (21:39)
[2024-03-03] VITALS (8 sets, daily range): BP systolic 118–168; BP diastolic 70–97; PULSE 61–82; RESP 16–18; TEMP 36.6; O2SAT 98–100
[2024-03-03] MEDS: LOSARTAN POTASSIUM 50 MG TAB PO SCH (09:11)
[2024-03-03] MEDS: amLODIPine BESYLATE 5 MG TAB PO SCH (09:12)
[2024-03-03] MEDS: cefTRIAXone 1GM/50ML D5W 50 ML IV SCH (09:12)
[2024-03-03] MEDS: FAMOTIDINE 20 MG TAB PO SCH (09:12)
[2024-03-03] MEDS: ENOXAPARIN SOD 40 MG/0.4 ML SYRINGE SC SCH (09:13)
[2024-03-03 09:42] LABS: Hepatitis B Core Total AB Negative (Negative)
[2024-03-03 13:26] LABS: Hepatitis A Total Antibody Positive (Negative); Hepatitis B Surface Antibody Negative (Negative); Hepatitis B Surface Antigen Negative (Negative); Hepatitis C Antibody Negative (Negative)
[2024-03-03 13:49] LABS: Chloride 107 mmol/L (98-107); Potassium 3.5 mmol/L (3.5-5.1); Sodium 138 mmol/L (136-145)
[2024-03-03 13:50] LABS: Anion Gap 6 (5-15); Carbon Dioxide 25 mmol/L (20-31)
[2024-03-03 13:51] LABS: Calcium 9.8 mg/dL (8.7-10.4)
[2024-03-03 13:56] LABS: BUN/Creatinine Ratio 10.8 (10.0-20.0); Blood Urea Nitrogen 12 mg/dL (9-23); Glucose 90 mg/dL (74-106)
[2024-03-03] MEDS ORDERED: MECL12.586 PO (15:42)
[2024-03-03] MEDS ORDERED: NITR-52 PO (15:42)
--- NOTE | 2024-03-03 17:02 | DVHDSRES ---
Discharge Summary Date of Admission Resident Creating Document: ABDULKADIR WONG RESIDENT Mar 01, 2024 at 20:11 Date of Discharge: Mar 03, 2024 Admitting Diagnosis Syncope and collapse Wounds: No wound was present Labs/Diagnostic Data: Laboratory Results Test 03/03/24 13:25 03/02/24 05:54 03/01/24 19:46 03/01/24 16:43 Sodium Level 138 mmol/L (136-145) Potassium Level 3.5 mmol/L (3.5-5.1) Chloride Level 107 mmol/L (98-107) Carbon Dioxide Level 25 mmol/L (20-31) Anion Gap 6 (5-15) Blood Urea Nitrogen 12 mg/dL (9-23) Creatinine 1.11 mg/dL (0.550-1.02) Glomerular Filtration Rate Calc 54 mL/min (>90) BUN/Creatinine Ratio 10.8 (10.0-20.0) Serum Glucose 90 mg/dL (74-106) Calcium Level 9.8 mg/dL (8.7-10.4) White Blood Count 4.4 10^3/uL (4.4-10.8) Red Blood Count 5.05 10^6/uL (4.0-5.20) Hemoglobin 12.6 g/dL (12.2-16.2) Hematocrit 39.5 % (36.0-46.0) Mean Corpuscular Volume 78.3 fL (80.0-100.0) Mean Corpuscular Hemoglobin 25.0 pg (28.0-32.0) Mean Corpuscular Hemoglobin Concent 31.9 g/dL (32.0-36.0) Red Cell Distribution Width 14.9 % (11.8-14.3) Platelet Count 229 10^3/uL (140-450) Mean Platelet Volume 9.9 fL (6.9-10.8) Neutrophils (%) (Auto) 50.4 % (37.0-80.0) Lymphocytes (%) (Auto) 37.0 % (10.0-50.0) Monocytes (%) (Auto) 11.0 % (0.0-12.0) Eosinophils (%) (Auto) 1.1 % (0.0-7.0) Basophils (%) (Auto) 0.5 % (0.0-2.0) Neutrophils # (Auto) 2.2 10 ^3/uL (1.6-8.6) Lymphocytes # (Auto) 1.6 10 ^3/uL (0.4-5.4) Monocytes # (Auto) 0.5 10 ^3/uL (0-1.3) Eosinophils # (Auto) 0 10 ^3/uL (0-0.8) Basophils # (Auto) 0 10 ^3/uL (0-0.2) Nucleated Red Blood Cells 0.2 % Total Bilirubin 0.2 mg/dL (0.2-1.0) Aspartate Amino Transferase (AST) 30 U/L (13-40) Alanine Aminotransferase (ALT) 23 U/L (7-40) Alkaline Phosphatase 75 U/L (46-116) Total Protein 7.0 g/dL (5.7-8.2) Albumin 3.5 g/dL (3.2-4.8) Vitamin B12 Level 438 pg/mL (211-911) Thyroid Stimulating Hormone (TSH) 0.92 uIU/mL (0.55-4.78) Hepatitis A Antibody Total Positive (Negative) Hepatitis B Surface Antigen Negative (Negative) Hepatitis B Surface Antibody Negative (Negative) Hepatitis B Core Total Antibody Negative (Negative) Hepatitis C Antibody Negative (Negative) Troponin I High Sensitivity 6 ng/L (</=34) D-Dimer, Quantitative 0.86 mg/L FEU (0.0-0.49) B-Type Natriuretic Peptide 107.52 pg/mL (0-100) Test 03/01/24 16:19 03/01/24 16:09 Urine Color Yellow (Yellow) Urine Clarity Turbid (Clear) Urine pH 5.5 (5.0-9.0) Urine Specific [place] 1.017 (1.001-1.035) Urine Protein Negative (Negative) Urine Ketones Negative (Negative) Urine Blood Negative /uL (Negative) Urine Nitrite 2+ (Negative) Urine Bilirubin Negative (Negative) Urine Urobilinogen Normal mg/dL (Negative) Urine Leukocyte Esterase 1+ /uL (Negative) Urine RBC 1 /hpf (0 - 4) Urine WBC 25 /hpf (0 - 5) Urine Squamous Epithelial Cells Few /hpf (<5) Urine Bacteria Many /hpf (None Seen) Urine Hyaline Casts Few /lpf (0 - 2) Urine Mucus Few (None Seen) Urine Glucose Normal mg/dL (Normal) Urine Opiates Screen Neg (NEGATIVE) Urine Fentanyl Screen Neg (NEGATIVE) Urine Barbiturates Screen Neg (NEGATIVE) Urine Phencyclidine Screen Neg (NEGATIVE) Urine Amphetamines Screen Neg (NEGATIVE) Urine Benzodiazepines Screen Neg (NEGATIVE) Urine Cocaine Screen Neg (NEGATIVE) Urine Cannabinoids Screen Pos (NEGATIVE) POC Glucose 75 mg/dl (70-106) Other Laboratory Tests 03/03/24 13:25 03/02/24 05:54 Brief Hx & Hospital Course: The patient is a 68-year-old female with past medical history of hypertension, liver disease, vertigo, arthritis, and anxiety who presented to [facility] ED for evaluation of syncopal episode. Patient reports she was eating her lunch when she suddenly had syncopal episode lasting for 1 minute, experiencing tunnel vision, lightheadedness, getting worse that prompted this visit. Hospital course: Initial EKG revealed sinus rhythm and troponins were unremarkable. CT head without contrast revealed no acute intracranial process and chronic microvascular ischemic changes old lacunar infarct. CTA demonstrated No evidence of hemodynamically significant stenosis in the bilateral carotid systems. Echo revealed ejection fraction 55% , orthostatic vital was negative and chest x-ray demonstrated mild pulmonary vascular congestion. Cardiology evaluated the patient and recommended continue blood pressure control and outpatient event monitor if necessary. Initially patient was given IV normal saline at 60 mL/hour for 2 L and the BP was controlled with continuing home meds amlodipine 10 mg p.o. daily, losartan potassium 50 mg daily, clonidine 0.1 mg PO TID and IV hydralazine 10 mg q.6 p.r.n.. U/A was consistent with UTI and patient was treated with IV ceftriaxone 1 g daily and also ordered urine bacterial culture. Ruled out BPPV by doing Jonna-Hallpike maneuver and patient was not complaining of any vertigo, nausea and on examination no oscillatory movement of the eyeball and no nystagmus. Discharge plan was discussed with the patient and all questions were answered. Patient is being discharged to home. Discharge diagnosis: # Syncope and collapse likely due to dehydration, ruled out structural heart disease # Ruled out Pulmonary embolism # Hypertensive emergency # Acute cystitis # Stage 3 CKD # History of CVA Discharge disposition: Home Medications : Nitrofurantoin 100 mg p.o. b.i.d. for 5 days and meclizine 12.5 mg Q 8 hours as needed and resumed home meds. Follow up : PCP in 1 week. Consults/Reason for consult Cardiology was consulted Operations or Procedures EXAM: CT HEAD WITHOUT CONTRAST HISTORY: confused COMPARISON: HEAD WITHOUT CONTRAST on DOS: 10/15/21, HEAD WITHOUT CONTRAST on DOS: 08/10/20 TECHNIQUE: Axial images were obtained and reformatted in coronal and sagittal planes. All CT scans at this medical facility are performed using dose modulation techniques as appropriate to a performed exam including the following: Automated exposure control was utilized; adjustment of the MA and/or KV according to patient size; and use of iterative reconstruction technique. CT Dose: CTDI volume is 64.26 mGy. Dose-length product is 1137.68 mGy*cm FINDINGS: Supratentorial Region: No evidence for large acute territorial ischemia. No intracranial hemorrhage is noted. Confluent white matter hypoattenuating foci are noted bilaterally, which typically reflect chronic microvascular ischemic changes. Chronic appearing lacunar infarcts are seen in the bilateral caudate heads, not present in CT scan of. Posterior Fossa: No acute abnormality. Brainstem: An old lacunar infarct is seen in right paramedian ofelia, stable. Sellar/Suprasellar Region: Unremarkable. Ventricles, Cisterns, Sulci: Age-appropriate. Orbits: Unremarkable. Paranasal Sinuses: Unremarkable. Mastoid Air Cells: Unremarkable. Vasculature: Intracranial arterial calcified plaque formation noted. Bones/Soft Tissues: No acute abnormality. Other: None. IMPRESSION: 1. No acute intracranial process. 2. Chronic microvascular ischemic changes old lacunar infarcts as described above. Carotid Duplex Clinical History: Syncope Comparison: CAROTID DUPLX W COLOR DOP on DOS: 10/15/21 Technique: Duplex Doppler evaluation of the extracranial carotid and vertebral arteries including color Doppler and spectral/pulsed waveform analysis was performed. Findings: RIGHT SIDE: The peak systolic velocities are 84 cm/s in the CCA, 77 cm/s in the ICA. The ICA/CCA ratio is 0.9. There visually appears to be mild plaque at the carotid bulb. The external carotid artery is patent with peak systolic velocity of 111 cm/s proximally. There is appropriate antegrade flow in the right vertebral artery. LEFT SIDE: The peak systolic velocities are 89 cm/s in the CCA, 68 cm/s in the ICA. The ICA/CCA ratio is 0.8. There visually appears to be mild plaque at the carotid bulb. The external carotid artery is patent with peak systolic velocity of 77 cm/s proximally. There is appropriate antegrade flow in the left vertebral artery. IMPRESSION: No evidence of hemodynamically significant stenosis in the bilateral carotid systems. CHEST RADIOGRAPH Indication: dizziness Technique: Single frontal view of the chest was obtained COMPARISON: CHEST PORTABLE on DOS: 10/15/21 FINDINGS: Lines and Tubes: None Lungs: Minimal interstitial prominence. No focal airspace consolidation. Pleura: No effusion. No pneumothorax. Cardiomediastinal contours: Normal heart size. Atherosclerosis of the aortic arch. Bones: Unremarkable. External density is noted over the right lower neck. IMPRESSION: Minimal interstitial prominence could represent mild pulmonary vascular congestion. No focal pneumonia. PROCEDURE: CT CT ANGIO CHEST CONTRAST 03/02/2024 12:29 PM INDICATION: to exclude PE COMPARISON: None TECHNIQUE: Coverage: Thorax IV contrast: Administered Phases: Arterial Multiplanar 3-D Maximum Intensity Projection images (MIP) reconstructions were created by the technologist in the coronal and sagittal planes as part of the CT angiography protocol. Adverse events: None Medication laboratory values were reviewed to verify the patient meets criteria for contrast administration. All CT scans at this medical facility are performed using dose modulation techniques as appropriate to a performed exam including the following: Automated exposure control was utilized; adjustment of the MA and/or KV according to patient size; and use of iterative reconstruction technique. Radiation dose: CTDIvol 27 mGy, DLP 944 mGy*cm. FINDINGS: Cardiovascular: No evidence of acute or chronic pulmonary emboli identified. Aorta is normal in caliber with moderate atherosclerotic calcification. The heart is normal in size. Coronary artery calcification noted. Lungs: No focal consolidation. No pleural effusion. No pneumothorax. The airways are patent. Thyroid: Asymmetric enlargement of the right lobe without a discrete lesion. Consider further evaluation with thyroid ultrasound. Esophagus: Unremarkable. Lymphatics: No hilar or mediastinal lymphadenopathy. Bones/soft tissues: No acute abnormality. Upper abdomen: No acute abnormality. Hepatic cirrhosis. Spleen is normal in size. No ascites noted. A 2.3 cm simple appearing cyst is seen in the upper pole of the right kidney Other: None. IMPRESSION: 1. No pulmonary emboli, aortic aneurysm or dissection. 2. No evidence of acute cardiopulmonary disease. 3. Hepatic cirrhosis with no evidence of portal hypertension. EXAM: US BILAT LOWER DVT Clinical History: To rule out DVT Comparison: None Technique: Duplex Doppler evaluation of the deep venous systems of both lower extremities from the common femoral veins to the popliteal veins including color Doppler and spectral/pulsed waveform analysis was performed. Findings: No visible intraluminal venous thrombus. No evidence of incompressibility or abnormal color or spectral Doppler flow visualized in the deep bilateral lower extremity veins. Proximal greater saphenous veins are grossly unremarkable. Impression: 1. No sonographic evidence of deep venous thrombosis throughout the bilateral lower extremities from the popliteal veins to the common femoral veins. Condition at Discharge: Guarded Final Diagnosis/Problems List # Syncope and collapse likely due to dehydration, ruled out structural heart disease # Ruled out Pulmonary embolism # Hypertensive emergency # Stage 3 CKD # Acute cystitis # History of CVA Discharge Disposition: Home Discharge Instruct/Medications Diet: Cardiac 2g Na,low cholest Activity: No Restrictions, As Tolerated Follow Up/Referral: Follow up with PCP in 1 week Follow up with outpatient Nephrology in 1 to 2 weeks. Medications: Nitrofurantoin 100 mg, 1 cap b.i.d. for 5 days Meclizine 12.5 mg 1 tab PO TID p.r.n. Discharge Statement: "Patient was advised to return to the ER or call 911 if any headaches, dizziness, shortness of breath, chest pain, abdominal pain, bleeding, fevers, or worsening of medical condition. Patient was counseled about treatment plan, medications, possible side effects, patientverbalized understanding. All questions were answered to the best of my ability. This discharge took greater then 30 minutes in planning, reviewing documentation, counseling the patient, and discussing with other team members." ASSESSMENT ASSESSMENT Assessment # Syncope and collapse likely due to dehydration, ruled out structural heart disease # Ruled out Pulmonary embolism # Hypertensive emergency # Stage 3 CKD # Acute cystitis # History of CVA ABDULKADIR WONG RESIDENT Mar 03, 2024 17:02
== END 2024-03-03 16:55 | disposition home or self-care (01) | DRG 641 ==
LOC: ER 15:57 → TELE 20:11 → TELE-WESTW 03-02 17:38
PROVIDERS: ADMIT Student in an Organized Health Care Education/Training Program; ATTEND Student in an Organized Health Care Education/Training Program
DX: E86.0 Dehydration (principal); N30.00 Acute cystitis without hematuria; I16.1 Hypertensive emergency; E87.6 Hypokalemia; E66.9 Obesity, unspecified; E11.65 Type 2 diabetes mellitus with hyperglycemia; F17.210 Nicotine dependence, cigarettes, uncomplicated; F41.9 Anxiety disorder, unspecified; N18.30 Chronic kidney disease, stage 3 unspecified; I12.9 Hypertensive chronic kidney disease with stage 1 through stage 4 chronic kidney disease, or unspecified chronic kidney disease; E11.22 Type 2 diabetes mellitus with diabetic chronic kidney disease; Z68.34 Body mass index [BMI] 34.0-34.9, adult; Z86.73 Personal history of transient ischemic attack (TIA), and cerebral infarction without residual deficits; Z82.49 Family history of ischemic heart disease and other diseases of the circulatory system; Z79.4 Long term (current) use of insulin; Z79.899 Other long term (current) drug therapy
CPT/HCPCS: 36415; 70450; 71045; 71275; 80048; 80053; 80307; 81001; 82607; 82962; 83880; 84443; 84484; 85025; 85379; 86704; 86706; 86708; 86803; 87086; 87340; 93005; 93306; 93886; 93970; G0378